=== PATIENT | female | born 1970 | race Caucasian/White ===

== ENCOUNTER 2016-03-10 07:30 | Day surgery (SDC) | payer OTHER ==
[~2016-03-10] VITALS: Ht 162.6 cm; Wt 58.3 kg
[2016-03-10 08:44] VITALS: Ht 162.6 cm; Wt 58.3 kg
[2016-03-10] MEDS ORDERED: FENTAnyl 50 MCG/ML VIAL ONE (09:58)
[2016-03-10] MEDS ORDERED: MIDAZOLAM 1 MG/ML 2 ML INJ ONE ×2 (09:59)
[2016-03-10 10:24] VITALS: BP 113/77; PULSE 69; RESP 12
--- NOTE | 2016-03-10 14:28 | GILP ---
DATE OF PROCEDURE: 03/10/2016 NAME OF PROCEDURE: Colonoscopy. SURGEON: Debora Reich MD PREOPERATIVE DIAGNOSES: History of colon cancer. POSTOPERATIVE DIAGNOSES: 1. Colonoscopy to anastomotic site and into the small bowel. 2. Status post right hemicolectomy. 3. Internal hemorrhoids. 4. No colon neoplasm was identified. INDICATION FOR THE PROCEDURE: Ms. Jenny Krishnan is a 45-year-old female patient who had surgery for colon cancer. The patient was scheduled for followup exam. The procedure and possible complications were well explained to the patient. She understood and con sented to the procedure. DESCRIPTION OF PROCEDURE: Under the influence of fentanyl and Versed, the colonoscope was carefully introduced in the rectum and under direct vision, it was advanced all the way to the anastomotic ar ea and into the terminal ileum. FINDINGS: The patient was status post right hemicolectomy. The patient was noted to have internal hemorrhoids. No colon neoplasm was identified. She tolerated the procedure very well and there was no complication from the procedure. At the end of the procedure, she was awake with stable vital signs and she was discharged home to the care of h er family. IMPRESSION: 1. Colonoscopy all the way to the anastomotic area and into the terminal ileum. 2. Status post right hemicolectomy. 3. Internal hemorrhoids. 4. No colon neoplasm was identified. PLAN: Next screening colonoscopy in 5 years. Dictated By: DEBORA EPSTEIN/BRIAN Conf#: [id number] DID#: [id number] CC: DEBORA REICH MD;*EndCC*
== END 2016-03-10 12:04 | disposition home or self-care (01) ==
LOC: GIL 07:30
PROVIDERS: ATTEND Internal Medicine Gastroenterology
DX: Z85.038 Personal history of other malignant neoplasm of large intestine (principal); K64.8 Other hemorrhoids
CPT/HCPCS: 45378; J2250; J3010; Z7610